=== PATIENT | male | born 1950 | race Caucasian/White ===

== ENCOUNTER 2019-05-31 17:13 | Emergency (ER) | payer MEDICARE, MEDICAID ==
[~2019-05-31] VITALS: Ht 188 cm; Wt 105.7 kg
[2019-05-31] MEDS ORDERED: glucagon, human recombinant 1mg kit IV ONE (17:30)
[2019-05-31] MEDS ORDERED: normal saline 1000ML IV soln IVB ONE (17:30)
[2019-05-31] MEDS ORDERED: LORazepam 2 mg/ml vial IV ONE (17:30)
[2019-05-31] MEDS ORDERED: OMEP20CA15 PO (17:31)
[2019-05-31] MEDS ORDERED: pantoprazole 40 MG vial IV ONE (17:35)
[2019-05-31] MEDS ORDERED: famotidine/PF 10 mg/ml inj IV ONE (17:35)
--- NOTE | 2019-05-31 18:34 | NUR ---
DR ALDRIDGE NOTIFIED PT WAS GIVEN WATER TO DRINK, PT STILL UNABLE TO SWALLOW AND KEEP LIQUIDS DOWN.
[2019-05-31] MEDS ORDERED: METF500T PO (18:58)
[2019-05-31] MEDS ORDERED: ATOR40TA PO (18:58)
[2019-05-31] MEDS ORDERED: ASPI-611 PO (18:58)
[2019-05-31] MEDS ORDERED: LISI-604 PO (18:58)
[2019-05-31] MEDS ORDERED: OMEP-50 PO (18:58)
[2019-05-31] MEDS ORDERED: LINA5TAB4 PO (18:58)
--- NOTE | 2019-05-31 19:13 | NUR ---
GI Lab nurse is transporting patient to GI lab at this time. His family is present and has been informed.
[2019-05-31 19:15] VITALS: BP 139/78
[2019-05-31] MEDS ORDERED: fentaNYL/PF 50MCG/1 ML 2ML syringe ONE (19:25)
[2019-05-31] MEDS ORDERED: LIDOcaine Viscous 15ml cup ONE (19:26)
[2019-05-31] MEDS ORDERED: MIDAZolam 5mg/5ml vial ONE (19:26)
[2019-05-31 20:25] VITALS: BP 144/80
[2019-05-31 20:35] VITALS: BP 119/75
[2019-05-31 20:45] VITALS: BP 125/75
[2019-05-31 20:50] VITALS: BP 131/83
--- NOTE | 2019-05-31 21:16 | NUR ---
Report was given by GI nurse. Patient is in the room, sleeping comfortably at this time. GI nurse reported successful removal of 3 pieces of food.
[2019-05-31 23:12] VITALS: BP 147/80
== END 2019-05-31 22:10 | disposition home or self-care (01) ==
LOC: ER 17:15
DX: T18.128A Food in esophagus causing other injury, initial encounter (principal); E11.9 Type 2 diabetes mellitus without complications; Z79.82 Long term (current) use of aspirin; Z79.899 Other long term (current) drug therapy; Y92.89 Other specified places as the place of occurrence of the external cause
CPT/HCPCS: 43247; 43248; 96374; 96375; 99152; 99153; 99285; C1769; C9113; J1610; J2060; J2250; J3010; J3490; J7030; J7040; A4620